=== PATIENT | female | born 1950 | race Caucasian/White ===

== ENCOUNTER → 2016-11-18 | Outpatient (CLI) | payer MEDICARE, BC ==
[~2016-11-18] MED LIST: ALBUTEROL2.5 MG/0.5 INH; EXCEDRIN EXTRA1 TAB PO; LEVOTHROID(SYN75 MCG PO; NORCO 5-325 MG1 TAB PO; PERCOCET 5-3251 EACH PO; PREMARIN0.625 MG PO; PROTONIX40 MG PO; STOOL SOFTENER100 MG PO; VITAMIN D-32000 UNI1 PO; ZOCOR40 MG PO
== END | disposition disaster alternative care site (69) ==
LOC: GRAD 07:24
DX: M48.02 Spinal stenosis, cervical region (principal); M51.26 Other intervertebral disc displacement, lumbar region; M47.896 Other spondylosis, lumbar region; G95.20 Unspecified cord compression

== ENCOUNTER → 2016-11-30 | Emergency (ER) | payer MEDICARE, BC | END | disposition disaster alternative care site (69) | LOC: GAMB 14:05 | DX: F41.9 Anxiety disorder, unspecified (principal); F41.0 Panic disorder [episodic paroxysmal anxiety] ==

== ENCOUNTER 2016-12-01 10:00 | Inpatient (IN) | payer MEDICARE, BC ==
[~2016-12-01] VITALS: Ht 149.9 cm; Wt 61.1 kg
--- NOTE | ~2016-12-01 | OR ---
PATIENT'S NAME: LATOSHA ALMODOVAR [facility] AGE: 66 Y [address] ROOM: [address] [place] [id number] LOCATION: [facility] ADMIT DATE: 12/06/2016 OR/Procedure Report DISCHARGE DATE: FAMILY PHYSICIAN: Moni Alfonso MD ATTENDING PHYSICIAN: Susan Garcia SURGEON: Susan Garcia MD SCREEN PRINTING CLOTH SPREADER: DATE OF PROCEDURE: 12/06/2016 PREOPERATIVE DIAGNOSIS: Cervical spinal stenosis with spinal cord compression at C4-C5, C5-C6, and C6-C7. POSTOPERATIVE DIAGNOSIS: Cervical spinal stenosis with spinal cord compression at C4-C5, C5-C6, and C6-C7. OPERATION PROPOSED AND PERFORMED: 1. Anterior cervical microdiskectomy at C4-C5, C5-C6, and C6-C7. 2. Anterior cervical fusion at C4-C5, C5-C6, and C6-C7. 3. Allograft. 4. Plating using the Inion absorbable plate. 5. Microscope. 6. Spinal cord decompression at C4-C5, C5-C6, and C6-C7. 7. Fluoroscopy with interpretation. DESCRIPTION OF PROCEDURE: Under general anesthesia, the patient was positioned supine. The neck was extended. The neck and upper chest were prepped and draped in the usual fashion. Next, a curvilinear incision was then carried out extending from the anterior border of the sternomastoid muscle to the midline. The platysma was incised along this line. We then continued our dissection in the plane between the sternomastoid muscle and the strap muscles, retracting the strap muscles away from the midline. This brought us to the prevertebral fascia, which we cauterized and incised, and got us to the vertebral bodies and disk spaces. Two spinal needles were placed into disk spaces and these turned out to be C4-C5 and C6-C7 disk spaces, which were marked by making an incision into them and also making an incision into the C5-C6 disk space, which was between them. Next, the longus colli muscles were dissected away from the attachments to the vertebral bodies and the black oxide coating equipment tender self-retaining retractors were then used for retraction. Next, incision into the disk spaces were extended at the C4-C5, C5-C6, and C6- C7 disk spaces. Next, starting at the C6-C7 level, the distraction rods were screwed into the vertebral bodies and the disk space was distracted. The microscope was brought in. With the aid of the microscope, we went ahead and removed the disk. As we continued posteriorly, disk spaces became quite narrow and definite obvious osteophytes at this level, which was compressing the dura using the Kerrison rongeur starting with a 1 mm Kerrison rongeur. We PATIENT'S NAME: LATOSHA ALMODOVAR [facility] AGE: 66 Y [address] ROOM: [address] [id number] LOCATION: [facility] ADMIT DATE: 12/06/2016 OR/Procedure Report DISCHARGE DATE: FAMILY PHYSICIAN: Moni Alfonso MD ATTENDING PHYSICIAN: Susan Garcia were able to remove the osteophytes completely and remove the posterior longitudinal ligament, which was also quite thickened down in some areas calcified. After this was done, the dura was quite free of any compression and so this entailed removing the posterior osteophytes, the posterior- inferior as well as the posterior-superior portions of the C6 and C7 vertebral bodies respectively. After this was done, hemostasis was achieved by put in Gel-Foam that was soaked in thrombin. Next, similar procedure was carried out at the C5-C6 and C4-C5 levels. The findings were the same. Next, we used the sizer to get the appropriate size bone graft, what we needed was a 5 mm in height. We tapped that into the 3 empty disk spaces. After that was done, the distraction rods were removed. Bone wax was used to seal the holes where they were. Next, the soft tissue was then removed from the anterior-inferior portion of C4, anterior part of C5, anterior part of C6, as well as the anterior-superior part of C7. After removing the soft tissue, we also excised the anterior osteophytes. Next, we then went ahead and used the template to get the plate, the Inion plate, that would be using for the plating. The plan here was to go ahead and used 2 separate plates one for 2 levels and the other one for one level. In order to do that, we had to make sure that the C5-C6 plate, the end of that plate was as superior as possible, thus we will have enough vertebral body of C6 to be able to use the plate. This was achieved and the plates were then put in place in the usual manner first by starting with the C4-C5 and C5-C6 levels. The plate was put in sterile warm saline and we then put in a slight lordosis on it. The plate was then placed anterior to the C4, C5, and C6 vertebral bodies and positioned as noted above. The plate holding pins were then used to hold the pins in position. Next, using the double-barrel guide, we started with the holes over the C5 vertebral body. We drilled and tapped and put the screws in. Next, similar procedure was then carried out at the C4 as well as the C6 vertebral bodies. Next, we got a small Inion plate for the C6-C7 level, got it smack distal to the previously that we put at C6. We were able to carry out a similar procedure, this was done at the C4-C5 and C5-C6 levels and the C6-C7 levels without any adverse events. The wound was then thoroughly irrigated with bacitracin irrigation and x-ray of the C-spine in both AP and lateral that was done postop, showed that the plates are in good position. The wound was then closed in layers, first the platysma and then the skin using luis. The patient tolerated the procedure well and was taken to the recovery room. MD VEGA DUCKWORTH/mainor PATIENT'S NAME: LATOSHA ALMODOVAR [facility] AGE: 66 Y [address] ROOM: [address] [address] LOCATION: [facility] ADMIT DATE: 12/06/2016 OR/Procedure Report DISCHARGE DATE: FAMILY PHYSICIAN: Moni Alfonso MD ATTENDING PHYSICIAN: Susan Garcia /[id number] d: 12/07/16 0031 t: 12/08/16 1515, OPERATIVE SUMMARY
--- NOTE | ~2016-12-01 | CON ---
PATIENT'S NAME: [facility] AGE: 66 Y [address] ROOM: [address] [place], [place] [address] LOCATION: [facility] ADMIT DATE: 12/06/2016 Consultation DISCHARGE DATE: FAMILY PHYSICIAN: Moni Alfonso MD ATTENDING PHYSICIAN: Susan Garcia DATE OF CONSULTATION: 12/06/2016 REFERRING PHYSICIAN: Susan Garcia MD CONSULTING PHYSICIAN: Dr. Bell. REASON FOR CONSULTATION: Postoperative chest pain. HISTORY OF PRESENT ILLNESS: The patient is a 66-year-old female postop day 0 for anterior cervical fusion. The patient was doing relatively well, but started to complain of vague lower sternal chest pain. It is described as sharp, comes and goes spontaneously, not relieved or triggered by any specific symptoms. It does not radiate. It is associated with burping. It is not associated with deep inspiration and cannot be elicited through palpation. The patient does report that she has not taken her PPI for a day or 2. The pain is not associated with shortness of breath and her vitals are stable. I have requested for an EKG and cardiac enzymes to be done. EKG appears unchanged from her preoperative and her cardiac enzymes show an expected slight elevation of CPK and CK-MB after surgery. REVIEW OF SYSTEMS: All systems have been reviewed and are negative aside from pertinent positives mentioned above. PAST MEDICAL HISTORY: The patient has had similar chest pain in the past and has had a negative cardiac cath approximately 5 years ago. Aside from that, she has a past medical history of hypothyroidism and GERD as well as hypercholesterolemia. FAMILY HISTORY: Reviewed and is noncontributory. SOCIAL HISTORY: Negative for any history or ongoing toxic habits. CURRENT MEDICATIONS: PATIENT'S NAME: [facility] AGE: 66 Y [address] ROOM: [address] [place], [place] [address] LOCATION: [facility] ADMIT DATE: 12/06/2016 Consultation DISCHARGE DATE: FAMILY PHYSICIAN: Moni Alfonso MD ATTENDING PHYSICIAN: Susan Garcia 1. Excedrin. 2. Cholecalciferol. 3. Colace. 4. Premarin. 5. Levothyroxine. 6. Pantoprazole. 7. Simvastatin. PHYSICAL EXAMINATION: VITAL SIGNS: Temperature 97.5, pulse 95, respirations of 16, blood pressure 163/80, and saturating 100% on 2 L nasal cannula. GENERAL: Appears as an elderly frail female in no acute distress. NEUROLOGIC: Exam is nonfocal. EYES: Exam shows pupils are equal and reactive to light. LYMPHATICS: Exam shows no cervical lymphadenopathy. ENDOCRINE: Exam shows no thyromegaly. LUNGS: Clear to auscultation. HEART: Rate is regular. Sternal exam does not reveal any tenderness. GI: Abdomen is soft, nontender. : No costovertebral angle tenderness. VASCULAR: A 2+ pedal pulses. MUSCULOSKELETAL: Exam is deferred. LABORATORY DATA: Review of the labs drawn in response to her symptoms shows a magnesium of 1.6 as well as a CPK of 658, CK-MB of 11.6, and a negative troponin. EKG demonstrates sinus rhythm at 90 beats per minute with Q-waves in leads V2 through V4 with poor R-wave progression as well as Q-waves in leads III and aVF. There is J-point elevation in leads V2 and V3. All of these abnormalities are unchanged from her preoperative EKG done 1 week ago. IMPRESSION AND RECOMMENDATIONS: This is a 66-year-old female with postoperative chest pain, which does not appear to be cardiac. I do appreciate a recent echocardiogram done in anticipation of the surgery and that is entirely unremarkable. The patient's PPI has been restarted and we will recommend continuing it. We will also offer her Mylanta for her symptoms as these are most likely gastrointestinal. We will replete the patient's magnesium. We will put in a courtesy consult to Dr. Alfonso who is the patient's PMD in the morning. Time dedicated to this patient encounter is 35 minutes. PATIENT'S NAME: LATOSHA ALMODOVAR [facility] AGE: 66 Y [address] ROOM: [address] [address] LOCATION: [facility] ADMIT DATE: 12/06/2016 Consultation DISCHARGE DATE: FAMILY PHYSICIAN: Moni Alfonso MD ATTENDING PHYSICIAN: Susan Garcia MD AVK/saml /[id number] d: 12/07/16 0356 t: 12/17/16 1718, CONSULTATION REPORT
--- NOTE | ~2016-12-01 | DS ---
PATIENT'S NAME: LATOSHA ALMODOVAR [facility] AGE: 66 Y [address] ROOM: [address] [place], [place] [address] LOCATION: [facility] ADMIT DATE: 12/06/2016 Discharge Summary DISCHARGE DATE: 12/08/2016 FAMILY PHYSICIAN: Moni Alfonso MD ATTENDING PHYSICIAN: Susan Garcia DISCHARGE SUMMARY: This 66-year-old lady was admitted electively following an anterior cervical diskectomy and fusion with cord decompression and plating with absorbable plate from C4-C7. This was carried out uneventfully in the operating room. Postoperatively, she was doing quite well. She had an episode of chest pain, was seen by both Dr. Moni Alfonso and the hospitalist for this, and there was nothing found significantly. This was probably mostly muscular. She did well postoperatively and was discharged home to be seen in the clinic 3 weeks from the time of discharge. She is to see Dr. Alfonso in 6 days from the time of discharge for removal of skin luis. 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 MD VEGA DUCKWORTH/modl /[id number] d: 12/08/16 2315 t: 12/24/16 1549, DISCHARGE SUMMARY
[~2016-12-01 10:00] MED LIST changes: -PERCOCET 5-3251 EACH PO
--- NOTE | 2016-12-06 18:53 | NUR ---
Significant Event: PT ARRIVED ON FLOOR AT 1700. POST OP VITALS CONT. 2ND 1/2 HOUR AT 1845. PT VOIDED X 1 WITH 1 ASSIST TO COMMODE. IV FLUIDS CONT. SPITS UP CLEAR FOAMY MUCUS WITH COUGHING. DRESSING INTACT TO NECK WITH SHADDOW DRAINAGE. STATES SONE CHEST DISCOMFORT AND PACU NURSE STATED THAT WAS DISCUSSED WITH [employer] OPERATOR HELPER AFTER OR. RATES PAIN AT A 5. IV MORPHINE 2MG GIVEN. DAUGHTER IN THE ROOM. NORCO GIVEN AT 1610. O2 ON 3LPM/NC. WARM BLANKET TO BACK OF SHOUDLERS FOR COMFORT. Follow up:
[2016-12-06 22:49] LABS: ALBUMIN 3.1 gm/dL (3.5-5.0); ALK PHOS 75 IU/L (33-138); ALT 18 IU/L (12-78); ANION GAP 11.8 (10.0-19.0); AST 26 IU/L (10-40); BLOOD UREA NITROGEN 9 mg/dL (6-24); CALCIUM 7.8 mg/dL (8.5-10.5); CHLORIDE 104 mMol/L (96-110); CO2 26 mMol/L (22-32); CPK 685 IU/L (21-215); CREATININE 0.7 mg/dL (0.5-1.1); ESTIMATED GFR (MDRD EQUATION) > 60; MAGNESIUM 1.6 mg/dL (1.8-2.6); POTASSIUM 3.8 mMol/L (3.7-5.1); SODIUM 138 mMol/L (135-145); TOTAL BILIRUBIN 0.5 mg/dL (0.0-1.5); TOTAL PROTEIN 6.8 g/dL (6.0-8.4)
--- NOTE | 2016-12-07 07:42 | NUR ---
Significant Event: Chest pain since PACU. Called MD and consulted hospitalist. EKG and cardic enzymes done. Patient stated she thinks it is more heart burn. [place] at 0232. Dressing has small drainage. CSM WNL. Follow up:
--- NOTE | 2016-12-07 13:04 | NUR ---
Introduced myself and role of care management to pt. She lives alone here in [place] and daughter plans on helping her and checking on her. She is up without any dme and denies the need for any hhc. WIll assist as needed.
--- NOTE | 2016-12-07 16:19 | NUR ---
Significant Event: PT ALERT AND ORIENTED. CONT TO HAVE SOME SWOLLOWING ISSUES BUT BETTER. CHEST DISCOMFORT RELIVED WITH BELCHING. PT REFUSED PO MYLANTA FOR GAS. NORCO FOR PAIN. FLEXERIL SHCEDULED. DRESSING TO NECK CHANGED TODAY. HOME TOMORROW Follow up:
--- NOTE | 2016-12-08 03:11 | NUR ---
Significant Event: A/O X 3. SAT UP IN RECLINER CHAIR. TAKEN EVENING MEAL OF SOUP, JELLO. HURTS TO SWALLOW AND SOME DIFFICULTY SWALLOWING. AMBULATED IN HALLS, GOOD TOLERANCE. IV SALINE LOCK INTACT. HAD NORCO FOR PAIN BILATERAL SHOULDERS, NECK AREA RATED AT 6, AT 0145 2 RATING, TOLRABLE. BILATERAL COMPRESSION HOSE ON. NECK DRSGS DRY INTACT TO RIGHT ANTERIOR SIDE NECK. K-PAD TO SHOULDERS. POSSIBLE TO GO HOME TODAY. Follow up:
[2016-12-08] MEDS ORDERED: PERCOCET 5-3251 EACH PO (14:04)
--- NOTE | 2016-12-08 14:47 | NUR ---
PT GIVEN DISCHARGE INSTRUCTIONS AND VOICES UNDERSTANDING. DRESSINGS AND MEDICATION REVIEWED WITH PT. SHOWER GUARDS GIVEN TO PT. ESCORTED TO THE FRONT DOOR BY THIS NURSE. FAMILY AT PT'S SIDE.
== END 2016-12-08 14:30 | disposition disaster alternative care site (69) | DRG 472 ==
LOC: G3N 12-06 08:46
PROVIDERS: Internal Medicine; ADMIT Neurological Surgery
DX: M48.02 Spinal stenosis, cervical region (principal); M50.021 Cervical disc disorder at C4-C5 level with myelopathy; I10 Essential (primary) hypertension; E03.9 Hypothyroidism, unspecified; K21.9 Gastro-esophageal reflux disease without esophagitis; R07.89 Other chest pain
CPT/HCPCS: C1713; C1776; J2001; J2270; J2405; J3010; J3370; J7030; J7120